=== PATIENT | male | born 1980 | race Caucasian/White ===

== ENCOUNTER 2017-06-26 10:28 | Emergency (ER) | payer OTHER, MEDICAID, SELFPAY ==
[2017-06-26 10:40] VITALS: BP 134/79; PULSE 50; RESP 18; TEMP 36.6; O2SAT 100; BMI 26.4
[2017-06-26] MEDS: ONDANSETRON 4 MG TABLET PO (10:47)
[2017-06-26] MEDS: SODIUM CHLORIDE 0.9% 1,000 ML 1000 ML IV ×2 (11:18→12:44)
--- NOTE | 2017-06-26 11:45 | ED.NAVMDI ---
HPI - Nausea/Vomiting/Diarrhea General Chief complaint: Nausea/Vomiting/Diarrhea Stated complaint: 'CANNOT STOP THROWING UP' Time Seen by Provider: 06/26/17 10:45 Source: patient Mode of arrival: ambulatory Limitations: no limitations History of Present Illness HPI Narrative: Otherwise health 37-year-old male presents to emergency with chief complaint of few episodes of diarrhea yesterday and upwards of 10 bouts of emesis today. He has generalized abdominal pain. He denies recent travel, exposure to other sick people, antibiotics or bad food MD complaint: nausea, vomiting and diarrhea Related Data Home Medications Medication Instructions Recorded Confirmed citalopram 40 mg PO QDAY #0 08/02/17 06/26/17 Previous Rx's Medication Instructions Recorded lorazepam [Ativan] 1 mg PO BEDTIME PRN #14 tab 06/26/17 Allergies Allergy/AdvReac Type Severity Reaction Status Date / Time NSAIDS (Non-Steroidal Allergy Unknown HAS ULCER Verified 06/26/17 10:48 Anti-Inflamma [NSAIDS (NON-STEROIDAL ANTI-INFLAMMA] Review of Systems Review of Systems All systems reviewed & are unremarkable except as noted in HPI and below Constitutional Denies chills, Denies fatigue, Denies fever(s), Denies lethargy and Denies weakness ENT Ears, Nose, Mouth, and Throat: Denies change in voice, Denies neck pain and Denies sore throat Cardiovascular Denies dyspnea and Denies dyspnea on exertion Respiratory Denies cough, Denies dyspnea, Denies dyspnea on exertion and Denies wheezing Gastrointestinal Gastrointestinal: Reports abdominal pain, Denies change in bowel habits, Reports diarrhea, Reports nausea and Reports vomiting Genitourinary Denies hematuria, Denies flank pain, Denies urinary incontinence and Denies urinary urgency Musculoskeletal Denies neck pain Integumentary/Breasts Denies pruritus, Denies erythema, Denies rash and Denies wounds Neurologic Denies weakness Endocrine Denies fatigue and Denies flushing Allergic/Immunologic Denies wheezing PFSH Social History Smoking Status: Former smoker Exam Narrative Exam Narrative: Pleasant 37-year-old male in mild distress, obviously uncomfortable Const General: cooperative, No comfortable, well developed and in distress Nutritional Appearance: well nourished Orientation: alert, awake, oriented x3 and not confused HENMT Head: normocephalic and atraumatic Ears: external ears normal and TM's normal bilaterally Nose: external nose normal and No nasal discharge Face and sinus: sinuses nontender, face symmetric, no sinus tenderness and No dry mucous membranes Mouth: oral mucosae normal and moist mucous membranes Teeth and gingiva: dentition normal Throat: tonsils normal and uvula midline Neck Neck: normal visual inspection, trachea midline, No lymphadenopathy, No midline deformity and No JVD Lymphatic: No lymphedema Chest Chest: normal inspection of the chest Cardio Rate: regular rate Rhythm: regular rhythm Heart Sounds: no click, no gallops, no murmurs and no rubs Pulses: normal peripheral pulses GI Inspection: non-distended Palpation: soft, no hepatosplenomegaly, No guarding, No pulsatile mass and tender Auscultation: hyperactive bowel sounds Back/Spine/Pelvis Back: No CVA tenderness Cervical Spine: cervical ROM normal and No pain with cervical ROM Thoracic/Lumbar Spine: thoracic and lumbar spine normal to inspection Psych Appearance: well kempt Mental Status: mental status grossly normal Attitude: cooperative Thought Content: normal and suicidality Judgment: judgment good MDM - Nausea/Vomiting/Diarrhea MDM Narrative Medical decision making narrative: Mother and provide valuable insight to the patient's visit today. They informed me that the patient has had episodic vomiting for the past 8 years. They state that every morning he wakes up essentially feeling fine and vomits in the morning and then goes about his day. They state he has had multiple thorough evaluations including emergency departments and multiple gastroenterologists and has had ???every test under the sun???. The more we discussed the case I suspect there is an underlying psychological component to it. He seems driven to vomit and becomes very uneasy if he is unable to, then essentially returns to baseline after his vomiting episodes. He does chronically use marijuana, daily, and states that historically this has helped with his nausea. He responded to Ativan but not ondansetron for treatment of his vomiting. He has had extensive evaluation of organic causes of his chronic vomiting but has yet to pursue any in-depth mental health evaluation. Mother and both state that he tends to vary between anxious and depressed and there are some components of cyclothymic disorder and some components of OCD as well. I spent a very long time at the bedside discussing possible approaches to further investigate the etiology of his symptoms. It does seem reasonable that cannabis hyperemesis could be playing a role as well. I did mention that prior to quitting the use of cannabis he should come up with a another plan with his primary care provider Differential Diagnosis Likely drug-induced nausea and vomiting Lab Data Result diagrams: 06/26/17 11:52 06/26/17 11:52 Lab Results 06/26/17 06/26/17 06/26/17 Range/Units 11:52 11:52 13:15 WBC 16.4 H (4.5-11.0) X10^3/uL RBC 4.84 (4.5-5.9) X10^6/uL Hgb 15.1 (13.5-17.5) g/dL Hct 43.7 (41-53) % MCV 90.2 (80-100) fL MCH 31.2 (26-34) PG MCHC 34.5 (30-36) % RDW 12.8 (11.6-14.8) % Plt Count 295 (150-400) X10^3/uL Neut % (Auto) 85.1 H (50-75) % Lymph % (Auto) 10.1 L (25-40) % [place] % (Auto) 4.2 (3-14) % Eos % (Auto) 0.2 L (2-4) % Baso % (Auto) 0.4 (0-2) % Neut # (Auto) 01319 H (0645-5391) /uL Sodium 141 (137-145) mmol/L Potassium 4.3 (3.4-5.1) mmol/L Chloride 104.0 (98-107) mmol/L Carbon Dioxide 24.0 (22-32) mmol/L BUN 15.0 (9-20) mg/dL Creatinine 0.80 (0.66-1.25) mg/dL Estimated GFR > 60.0 (>60) mL/min BUN/Creatinine Ratio 18.8 (6-22) Glucose 115 H (70-100) mg/dL Calcium 9.3 (8.4-10.2) mg/dL Total Bilirubin 0.8 (0.2-1.3) mg/dL AST 36 (17-59) IU/L ALT 35 (21-72) IU/L Alkaline Phosphatase 59 (38-126) U/L Total Protein 7.8 (6.3-8.2) g/dL Albumin 4.7 (3.5-5.0) g/dL Globulin 3.1 (1.7-4.1) g/dL Albumin/Globulin Ratio 1.5 (1.0-2.8) Urine WBC 0-1/hpf (0-5/HPF) Ur Squamous Epith Cells 0-1 /hpf Amorphous Sediment 1+ Ur Culture Indicated? Cult not indicated Micro UA Comment Not Reportable Course Orders Ordered: ED Orders 06/26/17 11:49 XR acute abdomen series Stat 06/26/17 11:52 Complete Blood Count AUTO DIFF Stat Comprehensive Metabolic Panel Stat 06/26/17 13:15 Urine Microscopic Stat Discontinued Medications Sodium Chloride (Normal Saline 0.9%) 1,000 mls @ 1,000 mls/hr IV BOLUS ONE Stop: 06/26/17 12:16 Last Infusion: 06/26/17 12:24 Dose: 0 mls/hr Admin: 06/26/17 11:18 Dose: 1,000 mls/hr Sodium Chloride (Normal Saline 0.9%) 1,000 mls @ 1,000 mls/hr IV BOLUS ONE Stop: 06/26/17 12:45 Last Admin: 06/26/17 12:44 Dose: 1,000 mls/hr Lorazepam (Ativan) 1 mg IV NOW ONE Stop: 06/26/17 13:08 Last Admin: 06/26/17 13:28 Dose: 1 mg Ondansetron HCl (Zofran) 4 mg PO NOW ONE Stop: 06/26/17 10:47 Last Admin: 06/26/17 10:47 Dose: 4 mg Ondansetron HCl (Zofran) 4 mg IV Q4HR PRN PRN Reason: Nausea And Vomiting Last Admin: 06/26/17 12:10 Dose: 4 mg Last Vital Signs Temp 97.8 F 06/26/17 10:40 Pulse 54 L 06/26/17 14:47 Resp 16 06/26/17 14:47 BP 133/79 H 06/26/17 14:47 Pulse Ox 97 06/26/17 14:47 Discharge Plan Departure Patient Disposition: Home, Self-Care Clinical Impression: Cyclic vomiting syndrome, Cannabis hyperemesis syndrome concurrent with and due to cannabis dependence Discharge Date/Time: 06/26/17 14:51 Interventions: ED Discharge Assessment Last Done: 06/26/17 14:47 Instructions: DI for Cyclic Vomiting Syndrome-Child Activity Restrictions/Additional Instructions: Please contact Dr. Ventura to re-establish a primary care physician, tell the office you were in the Emergency Department and Dr. Ayala would like you seen. Prescriptions: New lorazepam [Ativan] 1 mg tablet 1 mg PO BEDTIME PRN (Reason: nausea and vomiting) Qty: 14 RF: 0 No Action citalopram 40 MG tablet 40 mg PO QDAY Qty: 0 RF: 0 Referrals: Jimi Ventura MD [Physician] -
--- NOTE | 2017-06-26 11:49 | DI.RAD.S_ITS ---
PROCEDURE: XR ACUTE ABDOMEN SERIES INDICATIONS: Abdominal pain TECHNIQUE: One view chest and two views of the abdomen were acquired. COMPARISON: None. FINDINGS: Surgical changes and devices: None. Chest: Lungs are clear. Heart size is normal. No pleural effusions. No pneumoperitoneum. Abdomen: Bowel gas pattern is normal. No suspicious calcifications. Visualized solid organ contours appear normal. Bones: No suspicious bony lesions. Spina bifida occulta L5. IMPRESSION: Normal chest and abdomen Dictated by: Marlo Ruff M.D. on 06/26/2017 at 12:20 Approved by: Marlo Ruff M.D. on 06/26/2017 at 12:22
[2017-06-26 11:57] LABS: Add Manual Diff / Slide Review NO; Basophils Percent Auto 0.4 % (0-2); Eosinophils Percent Auto 0.2 % (2-4); Hematocrit 43.7 % (41-53); Hemoglobin 15.1 g/dL (13.5-17.5); Lymphocytes Percent Auto 10.1 % (25-40); Mean Corpuscular HGB Conc 34.5 % (30-36); Mean Corpuscular Hemoglobin 31.2 PG (26-34); Mean Corpuscular Volume 90.2 fL (80-100); Monocytes Percent Auto 4.2 % (3-14); Neutrophils Absolute Auto 14000 /uL (3000-5900); Neutrophils Percent Auto 85.1 % (50-75); Platelet Count 295 X10^3/uL (150-400); Red Blood Cell Count 4.84 X10^6/uL (4.5-5.9); Red Cell Distribution Width 12.8 % (11.6-14.8); White Blood Cell Count 16.4 X10^3/uL (4.5-11.0)
[2017-06-26 12:06] LABS: Alanine Aminotransferase 35 IU/L (21-72); Albumin 4.7 g/dL (3.5-5.0); Albumin Globulin Ratio 1.5 (1.0-2.8); Alkaline Phosphatase 59 U/L (38-126); Aspartate Aminotransferase 36 IU/L (17-59); BUN Creatinine Ratio 18.8 (6-22); Bilirubin Total 0.8 mg/dL (0.2-1.3); Calcium 9.3 mg/dL (8.4-10.2); Estimated Glomerular Filt Rate > 60.0 mL/min (>60); Globulin 3.1 g/dL (1.7-4.1); Glucose 115 mg/dL (70-100); Potassium 4.3 mmol/L (3.4-5.1); Sodium 141 mmol/L (137-145); Total Protein 7.8 g/dL (6.3-8.2)
[2017-06-26] MEDS: ONDANSETRON 4 MG/2 ML INJ IV (12:10)
[2017-06-26 12:22] LABS: HEMOLYSIS 70 (0-50)
[2017-06-26] MEDS: LORazepam 2 MG/ML SYRINGE 1 MG IV (13:28)
[2017-06-26 13:35] VITALS: BP 136/73; PULSE 46; O2SAT 97
[2017-06-26 13:39] VITALS: BP 136/73; PULSE 44; RESP 16; O2SAT 97
[2017-06-26 13:56] LABS: Amorphous Sediment Urine 1+; Squamous Epithelial Cell Urine 0-1 /HPF; WBC Urine 0-1/HPF (0-5/HPF)
[2017-06-26 13:57] LABS: Culture Indicated Urine Cult Not Indicated
[2017-06-26 14:00] VITALS: BP 133/79; PULSE 54; O2SAT 97
[2017-06-26 14:47] VITALS: BP 133/79; PULSE 54; RESP 16; O2SAT 97
--- NOTE | 2017-06-26 14:50 | PC.NURSE ---
FATEMEHJ at bedside discussing followup and establishment with PCP and mental health provider.
== END 2017-06-26 14:51 | disposition home or self-care (01) ==
PROVIDERS: Emergency Provider Emergency Medicine
DX: G43.A0 Cyclical vomiting, in migraine, not intractable (principal); F12.288 Cannabis dependence with other cannabis-induced disorder
CPT/HCPCS: 36591; 74022; 80053; 81003; 81015; 85025; 96361; 96374; 96375; 99283; 99284; J2060; J2405